=== PATIENT | female | born 1995 | race Caucasian/White ===

== ENCOUNTER 2016-08-02 19:08 | Emergency (ER) | payer BC ==
[~2016-08-02] VITALS: Ht 160 cm; Wt 51.3 kg
[2016-08-02] MEDS ORDERED: IRON PILL PO (19:30)
[2016-08-02] MEDS ORDERED: PREN1TAB81 PO (19:30)
--- NOTE | 2016-08-02 19:43 | NUR ---
Pt to room, changed into gown. Pt sts she is approx 12 wks preg. Pt c/o vag bleed which has since resolved. But conts to c/o mild lower abd cramping and developed white runny discharge with odor today. Pt resting in position of comfort for self. Awaiting further eval.
--- NOTE | 2016-08-02 20:20 | NUR ---
Dr. Lunsford at bedside for MSE
[2016-08-02 20:42] LABS: *BILIRUBIN,URIN NEGATIVE (NEGATIVE); *BLOOD, URINE NEGATIVE (NEGATIVE); *CLARITY,URINE SLIGHTLY CLOUDY (CLEAR); *COLOR,URINE YELLOW (YELLOW); *KETONES,URINE NEGATIVE (NEGATIVE); *PROTEIN,URINE NEGATIVE (NEGATIVE); LEUKOCYTE ESTERASE ,URINE TRACE (NEGATIVE); NITRITE, URINE NEGATIVE (NEGATIVE); UGLUCOSE NEGATIVE (NEGATIVE)
[2016-08-02 20:43] LABS: BASOPHILS % (AUTO) 0.5 % (0.0-2.0); EOSINOPHILS # (AUTO) 0.1 K/uL (0.0-0.7); EOSINOPHILS % (AUTO) 0.8 % (0.0-7.0); HEMATOCRIT 34.8 % (37-47); HEMOGLOBIN 11.9 G/DL (12.0-16.0); LYMPHOCYTES # (AUTO) 1.8 K/UL (0.8-4.8); LYMPHOCYTES % (AUTO) 25.7 % (20.5-74.5); MEAN CORPUSCULAR HEMOGLOBIN 30.9 UUG (27.0-31.0); MEAN CORPUSCULAR HGB CONC 34 g/dL (32.0-37.0); MEAN CORPUSCULAR VOLUME 90.8 FL (81.0-99.0); MONOCYTES # (AUTO) 0.5 K/UL (0.1-1.30); MONOCYTES % (AUTO) 7.1 % (0-11); NEUTROPHILS # (AUTO) 4.7 K/UL (1.8-8.9); NEUTROPHILS % (AUTO) 65.9 % (31.5-64.5); PLATELET COUNT (AUTO) 267 K/UL (150-450); RED BLOOD CELL COUNT(AUTO) 3.84 MIL/UL (4.2-5.4); WHITE BLOOD COUNT (AUTO) 7.1 K/UL (4.0-11.2)
[2016-08-02 20:57] LABS: CARBON DIOXIDE 26 mmol/L (21-32); CHLORIDE 105 mmol/L (98-107); CREATININE 0.4 mg/dL (0.6-1.3); GLUCOSE 95 mg/dL (74-106); POTASSIUM 3.4 mmol/L (3.5-5.1); UREA NITROGEN, BLOOD 6 mg/dL (7-18)
[2016-08-02 20:58] LABS: BACTERIA,URINE FEW /HPF (NONE SEEN); MUCUS,URINE FEW /LPF (0-FEW); RBC,URINE 0-3 /HPF (0-3); SQUAMOUS EPITHELIAL CELL,UR MODERATE /HPF (NONE SEEN)
--- NOTE | 2016-08-02 22:17 | NUR ---
Pt stable for discharge per MD. PT discharged by MD. Pt given ACI. Pt verbalized understanding of dc instructions. Pt ambulated out of er with steady gait.
[2016-08-02 22:19] VITALS: BP 120/56
== END 2016-08-02 22:19 | disposition home or self-care (01) ==
LOC: ER 19:09
DX: O03.9 Complete or unspecified spontaneous abortion without complication (principal)
CPT/HCPCS: 36415; 76856; 85025; 86850; 86900; 86901; 87491; A4663